=== PATIENT | male | born 1955 | race Caucasian/White ===

== ENCOUNTER 2017-02-01 07:18 | Day surgery (SDC) | payer OTHER ==
[~2017-02-01] VITALS: Ht 170.2 cm; Wt 93.0 kg
[~2017-02-01 07:18] MED LIST: ASPIR 8181 M1 PO; CARVEDILOL12.5 MG PO; CELEBREX200 MG PO; CLOBEX59 M1 TP; COREG6.25 M1 PO; DILAUDID2 MG PO; ELIQUIS5 MG PO; LEXAPRO20 MG PO; LIDOCAINE-HC 3-17 GM PR; LOSARTAN POTASS50 MG PO; ONE DAILY FOR1 EAC2 PO; Phenergan PO; SIMVASTATIN80 M1 PO; ZOCOR40 MG PO
[2017-02-01 08:26] VITALS: BP 125/72
[2017-02-01] MEDS ORDERED: PERCOCET 5/31 TABLET PO (10:12)
[2017-02-01 11:32] VITALS: BP 136/78
[2017-02-01 12:17] VITALS: BP 139/74
== END 2017-02-01 12:45 | disposition home or self-care (01) ==
LOC: SDC 07:18
PROC: 06BY0ZC Excision of Hemorrhoidal Plexus, Open Approach (ICD-10-PCS; principal; 2017-02-01)
DX: K64.4 Residual hemorrhoidal skin tags (principal); K62.89 Other specified diseases of anus and rectum; I10 Essential (primary) hypertension; F41.9 Anxiety disorder, unspecified; K62.5 Hemorrhage of anus and rectum; E78.5 Hyperlipidemia, unspecified; I47.2 Ventricular tachycardia; Z79.01 Long term (current) use of anticoagulants; Z95.810 Presence of automatic (implantable) cardiac defibrillator
CPT/HCPCS: 88304; J0131; J0690; J1100; J2250; J2405; J2704; J2765; J3010

== ENCOUNTER 2017-09-27 16:06 | Observation (INO) | payer OTHER ==
[~2017-09-27] VITALS: Ht 170.2 cm; Wt 95.7 kg
[~2017-09-27 16:06] MED LIST changes: +COREG12.5 M1 PO; -COREG6.25 M1 PO; +COZAAR50 MG PO; -LOSARTAN POTASS50 MG PO; +PERCOCET 5/31 TABLET PO
[2017-09-27 17:03] LABS: HEMATOCRIT 37.9 % (38.0-50.0); HEMOGLOBIN 12.7 G/DL (12.5-16.6); MCH 31.7 PG (29.0-34.0); MCHC 33.5 G/DL (30.0-36.0); MCV 94.5 FL (86-99); PLATELET COUNT 173 K/uL (156-360); RBC DIS.WIDTH-CV 14.2 % (11.8-14.6); RBC DIS.WIDTH-SD 48.8 % (39-53); RED BLOOD COUNT 4.01 M/uL (4.00-5.50); WHITE BLOOD COUNT 7.5 K/uL (4.1-10.2)
[2017-09-27 17:15] LABS: CHLORIDE 108 mEq/L (99-109); POTASSIUM 4.1 mEq/L (3.7-5.4)
[2017-09-27 17:16] LABS: SODIUM 139 mEq/L (136-147)
[2017-09-27 17:17] LABS: GLUCOSE 121 mg/dL (70-99)
[2017-09-27 17:21] LABS: CREATININE 1.3 mg/dL (0.6-1.3); GFR ESTIMATE (CALCULATED) > 59 mL/min/ (58.99-99999)
[2017-09-27 17:22] LABS: UREA NITROGEN (BUN) 18 mg/dL (9-23)
[2017-09-27 17:25] LABS: TROP-I INTERPRETATION NEGATIVE; TROPONIN-I 0.02 ng/mL (0.0-0.30)
[2017-09-27] MEDS ORDERED: MELATONIN1 MG PO (18:31)
[2017-09-27 20:14] LABS: BASE EXCESS 3.1 mEq/L (-3 to +3); CARBOXY HGB 2.1 % (0-5); COMMENTS - BLOOD GASES C+; FI02 21 %; METHEMOGLOBIN 0.8 % (0-1.5); PCO2 38 mm Hg (35-45); PO2 50 mm Hg (80-100); SITE LR; TOTAL RESP RATE 32 resp/min; pH 7.46 (7.35-7.45)
[2017-09-27 21:20] VITALS: BP 158/98
[2017-09-27 23:13] LABS: TROP-I INTERPRETATION NEGATIVE; TROPONIN-I 0.02 ng/mL (0.0-0.30)
[2017-09-28 00:06] VITALS: BP 163/90
[2017-09-28 04:14] VITALS: BP 137/85
[2017-09-28 05:28] LABS: TROP-I INTERPRETATION NEGATIVE; TROPONIN-I 0.02 ng/mL (0.0-0.30)
[2017-09-28 05:40] LABS: CHLORIDE 105 MEQ/L (99-109); CREATININE 1.2 MG/DL (0.6-1.3); GFR ESTIMATE (CALCULATED) > 59 mL/min/ (58.99-99999); GLUCOSE 94 mg/dL (70-99); POTASSIUM 3.6 MEQ/L (3.7-5.4); SODIUM 141 MEQ/L (136-147); UREA NITROGEN (BUN) 16 mg/dL (9-23)
[2017-09-28 08:18] VITALS: BP 160/96
[2017-09-28] MEDS ORDERED: FUROSEMIDE20 MG PO (12:22)
[2017-09-28 12:41] VITALS: BP 151/98
== END 2017-09-28 13:42 | disposition home or self-care (01) ==
LOC: EME 16:06 → 4SOUTH 19:13 → EDOF 19:13 → ENRESERV 19:18 → 4SOUTH 21:06 → ENPENDDIS 09-28 → 4SOUTH 09-28 13:42
PROVIDERS: Emergency Medicine; Internal Medicine
DX: I42.2 Other hypertrophic cardiomyopathy (principal); Z95.810 Presence of automatic (implantable) cardiac defibrillator; I11.0 Hypertensive heart disease with heart failure; I50.9 Heart failure, unspecified; G47.33 Obstructive sleep apnea (adult) (pediatric); E78.5 Hyperlipidemia, unspecified; Z82.49 Family history of ischemic heart disease and other diseases of the circulatory system; I45.10 Unspecified right bundle-branch block; I27.20 Pulmonary hypertension, unspecified; Z86.718 Personal history of other venous thrombosis and embolism; Z79.01 Long term (current) use of anticoagulants
CPT/HCPCS: 36600; 71046; 80048; 82803; 83880; 84484; 85027; 93005; 93880; 99281; 99285; G0378; J1940; J7030